=== PATIENT | male | born 1965 | race Caucasian/White ===

== ENCOUNTER 2017-03-30 09:10 | Emergency (ER) | payer SELFPAY ==
--- NOTE | 2017-03-30 09:51 | ED ---
General Adult HPI - General Chief complaint: [place]/Exposure Stated complaint: chemical exposure, face, eyes, breathed in Time Seen by Provider: 03/30/17 09:31 Source: patient, RN notes reviewed Mode of arrival: wheelchair Limitations: no limitations - History of Present Illness Initial comments: Patient is a 51-year-old male presents to the emergency room for evaluation. Patient states while at work yesterday he inhaled a powdered chemical. Patient states a few hours later he began feeling short of breath with eyes burning. Patient states he took Benadryl with no relief of symptoms. Patient states his eyes were burning and felt slightly short of breath all night. Patient states today his eyes are still burning but not as severe as last night. Patient states he called poison control and was advised to follow-up with his MSD sheet. Patient was unaware he had a sheet. Patient states he checked his sheet this morning and decided to come to the emergency room to be evaluated. - Related Data Home Medications Medication Instructions Recorded Confirmed No Known Home Medications [No 03/30/17 03/30/17 Known Home Medications] Allergies Allergy/AdvReac Type Severity Reaction Status Date / Time No Known Allergies Allergy Verified 03/30/17 09:26 Review of Systems ROS Statement: Those systems with pertinent positive or pertinent negative responses have been documented in the HPI. ROS Other: All systems not noted in ROS Statement are negative. Past Medical History Past Medical History: No Reported History History of Any Multi-Drug Resistant Organisms: None Reported Past Surgical History: No Surgical Hx Reported Past Psychological History: No Psychological Hx Reported Smoking Status: Never smoker Past Alcohol Use History: Occasional Past Drug Use History: None Reported General Exam - General Exam Comments Initial Comments: Sitting in exam room, no acute distress. Limitations: no limitations General appearance: alert, in no apparent distress Head exam: Present: atraumatic, normocephalic, normal inspection Eye exam: Present: normal appearance, PERRL, EOMI Pupils: Present: normal accommodation Expanded Eyelids: Normal Inspection: Bilateral Pupils: Regular, Round: Bilateral Sclera/Conjunctival: Normal Inspection: Bilateral ENT exam: Present: normal exam Neck exam: Present: normal inspection Respiratory exam: Present: normal lung sounds bilaterally. Absent: respiratory distress Cardiovascular Exam: Present: regular rate, normal rhythm, normal heart sounds Extremities exam: Present: normal inspection Back exam: Present: normal inspection Neurological exam: Present: alert, oriented X3, CN II-XII intact, normal gait Psychiatric exam: Present: normal affect, normal mood Skin exam: Present: warm, dry, intact, normal color. Absent: rash Course Vital Signs 03/30/17 03/30/17 03/30/17 09:14 10:41 10:49 Temperature 97.8 F Pulse Rate 94 76 78 Respiratory 20 Rate Blood Pressure 129/76 O2 Sat by Pulse 99 Oximetry 03/30/17 11:45 Temperature 97.1 F L Pulse Rate 92 Respiratory 16 Rate Blood Pressure 168/82 O2 Sat by Pulse 97 Oximetry Medical Decision Making - Medical Decision Making Patient is a 51-year-old male presents emergency room for ventilation of chemical exposure. Poison control was called. Presenting control suggested to draw electrolytes and to give bronchodilators. Poison control states that symptoms should resolve within 24-48 hours. Patient states the breathing treatment helped. Electrolytes within normal limits. Patient given proparacaine drops while here to relieve eye pain. Advised patient to follow- up with primary care provider. Return parameters discussed. Case discussed with Dr. Irizarry. - Lab Data Result diagrams: 03/30/17 10:40 Lab Results 03/30/17 Range/Units 10:40 Sodium 141 (137-145) mmol/L Potassium 4.6 (3.5-5.1) mmol/L Chloride 104 (98-107) mmol/L Carbon Dioxide 23 (22-30) mmol/L Anion Gap 14 mmol/L - Radiology Data Radiology results: report reviewed, image reviewed Disposition Clinical Impression: Exposure to chemical inhalation Disposition: HOME SELF-CARE Condition: Good Instructions: Eye Pain (ED) Additional Instructions: Please follow up with primary care provider in 1-2 days. If any new symptom arises or symptoms worsen, return to ER as soon as possible. Referrals: None,Stated [Primary Care Provider] - 1-2 days Time of Disposition: 11:34
--- NOTE | 2017-03-30 10:05 | XR ---
EXAMINATION TYPE: XR chest 2V DATE OF EXAM: 03/30/2017 9:59 AM HISTORY: Noxious exposure. REFERENCE: NONE. FINDINGS: The lungs are clear. Pleural spaces are clear. Heart is mildly enlarged. IMPRESSION: MILD CARDIOMEGALY.
[2017-03-30] MEDS ORDERED: ALBUTEROL NEBULIZED 2.5 MG/3 ML INHALATION STA (10:17)
[2017-03-30 11:02] LABS: Potassium 4.6 mmol/L (3.5-5.1)
[2017-03-30] MEDS ORDERED: PROPARACAINE 0.5% OPHTH DROPS 15 ML BTL ONE (11:05)
[2017-03-30] MEDS ORDERED: PROPARACAINE 0.5% OPHTH DROPS 15 ML BTL BOTH EYES STA (11:37)
[2017-03-30 11:46] VITALS: BP 168/82; PULSE 92; RESP 16; TEMP 97.1
== END 2017-03-30 11:48 | disposition home or self-care (01) ==
LOC: EC 09:10
DX: H57.8 Other specified disorders of eye and adnexa (principal); R06.02 Shortness of breath; Z77.098 Contact with and (suspected) exposure to other hazardous, chiefly nonmedicinal, chemicals
CPT/HCPCS: 36415; 71020; 80051; 94640; 99284